=== PATIENT | female | born 1940 | race Caucasian/White ===

== ENCOUNTER → 2016-11-02 | Outpatient (CLI) | payer OTHER | END | disposition home or self-care (01) | LOC: C.PATHSPEC 14:26 | PROVIDERS: ATTEND Dermatology | DX: H61.002 Unspecified perichondritis of left external ear (principal) ==

== ENCOUNTER → 2016-12-22 | Outpatient (CLI) | payer OTHER | END | disposition home or self-care (01) | LOC: C.PATHSPEC 16:48 | PROVIDERS: ATTEND Dermatology | DX: L81.4 Other melanin hyperpigmentation (principal) ==

== ENCOUNTER → 2017-01-26 | Outpatient (CLI) | payer OTHER | END | disposition home or self-care (01) | LOC: C.PATHSPEC 16:35 | PROVIDERS: ATTEND Dermatology | DX: L82.1 Other seborrheic keratosis (principal) ==

== ENCOUNTER → 2017-01-26 | Outpatient (CLI) | payer OTHER | END | disposition home or self-care (01) | LOC: C.PAPS 15:31 | PROVIDERS: ATTEND Obstetrics & Gynecology | DX: N87.9 Dysplasia of cervix uteri, unspecified (principal); L82.1 Other seborrheic keratosis ==

== ENCOUNTER → 2017-02-09 | Outpatient (CLI) | payer OTHER ==
[2017-02-09 14:31] LABS: THYROID STIMULATING HORMONE 0.553 uIu/ml (0.300-4.500)
== END | disposition home or self-care (01) ==
LOC: C.LABMFLN 12:27
PROVIDERS: ATTEND Family Medicine
DX: E03.9 Hypothyroidism, unspecified (principal)

== ENCOUNTER → 2017-02-18 | Outpatient (CLI) | payer OTHER | END | disposition home or self-care (01) | LOC: C.PATH 13:55 | PROVIDERS: ATTEND Obstetrics & Gynecology | DX: R87.810 Cervical high risk human papillomavirus (HPV) DNA test positive (principal); N87.0 Mild cervical dysplasia ==

== ENCOUNTER → 2017-08-22 | Outpatient (CLI) | payer OTHER ==
[2017-08-22 12:43] LABS: BASO % 0.3 %; BASO ABS # 0.02 K/uL (0-0.2); COMPLETE YES; EOS % 2.3 %; HEMATOCRIT 42.2 % (37-47); IG% 0.2 %; LYMPH % 24.3 %; LYMPH ABS # 1.45 K/uL (1.2-3.4); MEAN CELL VOLUME 96.3 fL (80-100); MEAN CORPUSCULAR HEMOGLOBIN 33.1 pg (25-34); MEAN CORPUSCULAR HGB CONC 34.4 g/dl (32-36); MEAN PLATELET VOLUME 9.3 fL (7.4-10.4); MONO % 9.9 %; PLATELET COUNT 261 K/uL (130-400); RED BLOOD COUNT 4.38 M/uL (4.2-5.4); WHITE BLOOD COUNT 5.96 K/uL (4.8-10.8)
[2017-08-22 13:25] LABS: ALT/SGPT 35 U/L (12-78); AST/SGOT 29 U/L (15-37); BLOOD UREA NITROGEN 7 mg/dl (7-18); BUN/CREATININE RATIO 9.5 (10-20); CALCIUM 9.3 mg/dl (8.5-10.1); CARBON DIOXIDE 29 mmol/L (21-32); CHLORIDE 103 mmol/L (98-107); CREATININE 0.75 mg/dl (0.60-1.20); GLUCOSE 89 mg/dl (70-99); POTASSIUM 3.4 mmol/L (3.5-5.1); SODIUM 136 mmol/L (136-145)
[2017-08-22 13:37] LABS: ALB/GLOB RATIO 1.2 (0.9-2); ALKALINE PHOSPHATASE 88 U/L (45-117); CHOLESTEROL 193 mg/dl (0-200); CHOLESTEROL/HDL RATIO 2.6; HDL CHOLESTEROL 75 mg/dl; LDL CHOLESTEROL CALCULATED 81 mg/dl; TRIGLYCERIDES 184 mg/dl (0-150); VERY LOW DENSITY LIPOPROT CALC 37 mg/dl
== END | disposition home or self-care (01) ==
LOC: C.LABMFLN 09:47
PROVIDERS: ATTEND Family Medicine
DX: I10 Essential (primary) hypertension (principal); E03.9 Hypothyroidism, unspecified

== ENCOUNTER → 2017-09-08 | Outpatient (CLI) | payer OTHER | END | disposition home or self-care (01) | LOC: C.PATHSPEC 17:41 | PROVIDERS: ATTEND Dermatology | DX: L57.0 Actinic keratosis (principal) ==

== ENCOUNTER → 2017-10-10 | Outpatient (CLI) | payer OTHER | END | disposition home or self-care (01) | LOC: C.PAPS 13:49 | PROVIDERS: ATTEND Obstetrics & Gynecology | DX: Z12.4 Encounter for screening for malignant neoplasm of cervix (principal); N87.9 Dysplasia of cervix uteri, unspecified ==

== ENCOUNTER 2022-12-02 05:06 | Inpatient (IN) ==
--- NOTE | 2022-11-11 10:33 | PAT Medication Instructions ---
Medication Instructions Date of Service November 11, 2022 Home Medications Medication Instructions Recorded losartan 50 mg tablet 50 mg PO QAM #90 tabs 07/29/20 hydrochlorothiazide 25 mg tablet 25 mg PO QAM #90 tabs 02/17/21 fluocinolone 0.01 % scalp oil and 1 ea topical .COMPLEX #3 BTLS 02/27/21 shower cap betamethasone dipropionate 0.05 % 1 applic topical DAILY #180 mL 04/29/22 lotion clobetasol 0.05 % topical cream 1 applic topical BID PRN psoriasis 04/29/22 2 weeks #180 grams albuterol sulfate 90 mcg/actuation aerosol inhaler (Ventolin HFA) 1 puff inhalation UD PRN Shortness Of Breath ascorbic acid (vitamin C) 1,000 mg tablet (Vitamin C) 1 g PO UD PRN Cold Symptoms cholecalciferol (vitamin D3) 50 mcg (2,000 unit) capsule (Vitamin D3) 2,000 unit PO QAM loratadine 10 mg tablet 10 mg PO QAM fluticasone propionate 50 mcg/actuation nasal spray,suspension (Flonase Allergy Relief) 2 spray intranasal DAILY PRN Congestion losartan 50 mg tablet 50 mg PO QAM hydrochlorothiazide 25 mg tablet 25 mg PO QAM fluocinolone 0.01 % scalp oil and shower cap 1 ea topical betamethasone dipropionate 0.05 % lotion 1 applic topical DAILY clobetasol 0.05 % topical cream 1 applic topical BID PRN psoriasis 2 weeks Collagen Powder 1 dose PO QAM alendronate 70 mg tablet (Fosamax) 70 mg PO WK carboxymethylcellulose sodium 1 % eye drops (Artificial Tears (carboxymethylcellulose)) 1 drp ophthalmic (eye) QID docusate sodium 100 mg tablet (Stool Softener) 100 mg PO BID fluticasone 100 mcg-salmeterol 50 mcg/dose blistr powdr for inhalation (Advair Diskus) 1 inh inhalation BID hydroxychloroquine 200 mg tablet (Plaquenil) 100 mg PO HS levothyroxine 112 mcg tablet (Synthroid) 112 mcg PO QAM omega-3 fatty acids 1,000 mg PO DAILY turmeric 400 mg capsule 400 mg PO DAILY Continue as directed alendronate 70 mg tablet (Fosamax) 70 mg PO WK (just do not take morning of surgery) ASK your prescriber and surgeon hydroxychloroquine 200 mg tablet (Plaquenil) 100 mg PO HS STOP taking 2 weeks before surgery omega-3 fatty acids 1,000 mg PO DAILY turmeric 400 mg capsule 400 mg PO DAILY STOP taking 24 hours before surgery fluocinolone 0.01 % scalp oil and shower cap 1 ea topical betamethasone dipropionate 0.05 % lotion 1 applic topical DAILY clobetasol 0.05 % topical cream 1 applic topical BID PRN psoriasis 2 weeks DO NOT take the morning of surgery ascorbic acid (vitamin C) 1,000 mg tablet (Vitamin C) 1 g PO UD PRN Cold Symptoms cholecalciferol (vitamin D3) 50 mcg (2,000 unit) capsule (Vitamin D3) 2,000 unit PO QAM loratadine 10 mg tablet 10 mg PO QAM losartan 50 mg tablet 50 mg PO QAM hydrochlorothiazide 25 mg tablet 25 mg PO QAM Collagen Powder 1 dose PO QAM docusate sodium 100 mg tablet (Stool Softener) 100 mg PO BID Take morning of surgery With a small sip of water, OTHERWISE NOTHING TO EAT OR DRINK AFTER MIDNIGHT: levothyroxine 112 mcg tablet (Synthroid) 112 mcg PO QAM albuterol sulfate 90 mcg/actuation aerosol inhaler (Ventolin HFA) 1 puff inhalation UD PRN Shortness Of Breath (use if needed; please bring with you to hospital day of surgery if possible) fluticasone propionate 50 mcg/actuation nasal spray,suspension (Flonase Allergy Relief) 2 spray intranasal DAILY PRN Congestion (if needed) carboxymethylcellulose sodium 1 % eye drops (Artificial Tears (carboxymethylcellulose)) 1 drp ophthalmic (eye) QID fluticasone 100 mcg-salmeterol 50 mcg/dose blistr powdr for inhalation (Advair Diskus) 1 inh inhalation BID Take evening before surgery albuterol sulfate 90 mcg/actuation aerosol inhaler (Ventolin HFA) 1 puff inhalation UD PRN Shortness Of Breath (if needed) ascorbic acid (vitamin C) 1,000 mg tablet (Vitamin C) 1 g PO UD PRN Cold Symptoms (if needed) cholecalciferol (vitamin D3) 50 mcg (2,000 unit) capsule (Vitamin D3) 2,000 unit PO QAM loratadine 10 mg tablet 10 mg PO QAM fluticasone propionate 50 mcg/actuation nasal spray,suspension (Flonase Allergy Relief) 2 spray intranasal DAILY PRN Congestion (if needed) carboxymethylcellulose sodium 1 % eye drops (Artificial Tears (carboxymethylcellulose)) 1 drp ophthalmic (eye) QID docusate sodium 100 mg tablet (Stool Softener) 100 mg PO BID fluticasone 100 mcg-salmeterol 50 mcg/dose blistr powdr for inhalation (Advair Diskus) 1 inh inhalation BID Other Notes If you have any questions please call us at [phone] or [phone] or [phone] or [phone]
--- NOTE | 2022-11-15 10:36 | Anesthesiology Consultation ---
Date of Service November 15, 2022 Assessment & Plan (1) Encounter for pre-operative examination: - antibody screen positive: nothing additional needed per [facility] with blood bank, states they will have units available. - Pt states has a "light" screening yearly offered for free at [facility] and has been told of "mild carotid artery stenosis." No available imaging/records. She denies dizziness, lightheadedness or presyncope. Case discussed with Dr. Bautista who advised nothing further needed from his standpoint. Outpatient joint assessment: Patient is currently scheduled for inpatient pathway. If re-evaluated pending system levels during current pandemic/surgeon requests outpatient pathway, patient is not acceptable candidate for outpatient joint program from anesthesia standpoint. Chart Review Chart Review: Acceptable Risk for Surgery and Patient seen in Pre Admission Testing Teaching & Discussion Pre-Anesthesia Teaching/Discussion Notes: Instructed NPO after midnight before surgery, except medications with 15 cc of water. Medication instructions provided according to the PAT guidelines. History Surgery Operation Date: 12/02/22 12:10 Proposed Procedures p Left Total Shoulder Arthroplasty Reverse - Wilian Dey M.D. Height/Weight Height: 5 ft 3 in Weight: 64.3 kg Allergies Allergy/AdvReac Type Severity Reaction Status Date / Time Sulfa (Sulfonamide Allergy Intermediate Hives Verified 11/11/22 08:39 Antibiotics) celecoxib [From Celebrex] Allergy Mild Rash Verified 11/11/22 08:39 linaclotide [From Linzess] AdvReac Intermediate Abdominal Verified 11/11/22 08:43 Pain nabumetone Allergy Mild Rash Uncoded 11/11/22 08:39 Medications Home Medications Medication Instructions Recorded Confirmed Last Taken albuterol sulfate 90 mcg/actuation 1 puff inhalation UD PRN Shortness 05/31/18 11/11/22 06/16/18 06:45 aerosol inhaler (Ventolin HFA) Of Breath ascorbic acid (vitamin C) 1,000 mg 1 g PO UD PRN Cold Symptoms 05/31/18 11/11/22 Unknown tablet (Vitamin C) cholecalciferol (vitamin D3) 50 2,000 unit PO QAM 05/31/18 11/11/22 06/15/18 07:00 mcg (2,000 unit) capsule (Vitamin D3) loratadine 10 mg tablet 10 mg PO QAM 05/31/18 11/11/22 06/15/18 07:00 fluticasone propionate 50 2 spray intranasal DAILY PRN 06/16/18 11/11/22 06/15/18 07:00 mcg/actuation nasal Congestion spray,suspension (Flonase Allergy Relief) losartan 50 mg tablet 50 mg PO QAM #90 tabs 07/29/20 11/11/22 Unknown hydrochlorothiazide 25 mg tablet 25 mg PO QAM #90 tabs 02/17/21 11/11/22 Unknown fluocinolone 0.01 % scalp oil and 1 ea topical .COMPLEX #3 BTLS 02/27/21 11/11/22 Unknown shower cap betamethasone dipropionate 0.05 % 1 applic topical DAILY #180 mL 04/29/22 11/11/22 Unknown lotion clobetasol 0.05 % topical cream 1 applic topical BID PRN psoriasis 04/29/22 11/11/22 Unknown 2 weeks #180 grams Collagen Powder 1 dose PO QAM 11/11/22 11/11/22 Unknown alendronate 70 mg tablet (Fosamax) 70 mg PO WK 11/11/22 11/11/22 Unknown carboxymethylcellulose sodium 1 % 1 drp ophthalmic (eye) QID 11/11/22 11/11/22 Unknown eye drops (Artificial Tears (carboxymethylcellulose)) docusate sodium 100 mg tablet 100 mg PO BID 11/11/22 11/11/22 Unknown (Stool Softener) fluticasone 100 mcg-salmeterol 50 1 inh inhalation BID 11/11/22 11/11/22 Unknown mcg/dose blistr powdr for inhalation (Advair Diskus) hydroxychloroquine 200 mg tablet 100 mg PO HS 11/11/22 11/11/22 Unknown (Plaquenil) levothyroxine 112 mcg tablet 112 mcg PO QAM 11/11/22 11/11/22 Unknown (Synthroid) omega-3 fatty acids 1,000 mg PO DAILY 11/11/22 11/11/22 Unknown turmeric 400 mg capsule 400 mg PO DAILY 11/11/22 11/11/22 Unknown acetaminophen 160 mg tablet 325 mg PO Q4H PRN Pain 11/15/22 11/15/22 Unknown ascorbate calcium (vitamin C) 11/15/22 Unknown biotin 10,000 mcg capsule mcg PO QAM 11/15/22 Unknown ibuprofen 100 mg tablet 200 mg PO Q6H PRN Pain 11/15/22 11/15/22 Unknown Additional Notes: Pt states is also taking biotin, calcium, acetaminophen and ibuprofen prn. These were added to EMR and written on provided medication instructions with patient to stop biotin 2 weeks before surgery, check with surgeon on ibuprofen, NOT take calcium DOS and can continue acetaminophen prn. She verbalized full understanding and agreement, denied questions, concerns or additional medications/supplements. 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 Exercise / Class Metabolic Activity III < 4 Walking/Shop/Light housework (ambulates with cane, denies chest discomfort or shortness of breath with usual activities) Past Family History Family History Father Prostate cancer Heart disease Hypercholesterolemia Lung cancer Hypertension Stroke Sister Liver cancer Heart disease Mother Ovarian cancer Heart disease Hypercholesterolemia Hypertension Family/Other Breast cancer Other No family history of adverse response to anesthesia Denies family history of Myocardial infarction Colorectal cancer Past Surgical History Surgical History (Updated 11/15/22 @ 10:31 by Humaira Martinez PA-C) H/O dilation and curettage History of arthroscopy RT SHOULDER History of bunionectomy RT History of cataract surgery RT History of loop electrical excision procedure (LEEP) x2, november 2015, saw Dr Escamilla february 2017 Hx of colonoscopy Hx of hand surgery 5 JOINT REPLACEMENTS OF FINGERS Hx of thyroidectomy REMOVED BECAUSE "ENLARGED" Hx of tonsillectomy 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 Past Anesthesia History No Hx of Anesthesia Complications and No Family Hx of Anesthesia Complications History of PONV No Hx of PONV and No Hx of Motion Sickness Social History Smoking Status: Former smoker tobacco type: cigarettes Smoking cigarettes per day: social smoking "WHEN I WAS YOUNGER" Do You Dip or Chew Tobacco: No Hx Alcohol Use: Yes (Occ) Alcohol type: beer and wine alcohol intake frequency: a few times a month substance use type: does not use Review of Systems Patient denies chest pain, shortness of breath, dyspnea on exertion, snoring, witnessed apneas, reflux, fever, chills, cough, wheezing, or palpitations. Physical Exam Vital Signs Vitals BP 131/81 P 78 TEMP 98.6 SP02 96% on RA RESP 18 Physical Full cervical extension range of motion without pain TMD 3 finger breadths Mallampati Score 2 Dentition: intact, denies chipped or loose teeth, caps/crowns, implants or bridges Lungs: normal respiratory effort. Clear throughout to auscultation, no adventitious breath sounds Cardiac: regular rate and rhythm, no murmurs noted Carotid arteries: negative bruit bilat Lab Results Anesthesia Preop Results Results Anesthesia Widget: WBC 5.63 K/ul (4.8-10.8) 11/15/22 Hgb 13.1 g/dl (12.0-16.0) 11/15/22 Hct 38.9 % (37.0-47.0) 11/15/22 Plt 270 K/uL (130-400) 11/15/22 Na 138 mmol/L (136-145) 11/15/22 K 3.5 mmol/L (3.5-5.1) 11/15/22 Cl 103 mmol/L (98-107) 11/15/22 CO2 30 mmol/L (21-32) 11/15/22 BUN 25 mg/dl (6-23) H 11/15/22 Creat 0.57 mg/dl (0.6-1.2) L 11/15/22 Glucose Level 78 mg/dl (70-99(Fasting)) 11/15/22 PT 10.6 Seconds (9.0-12.0) 11/15/22 PTT 26.8 Seconds (21.0-31.0) 11/15/22 INR 1.0 (0.9-1.1) 11/15/22 HA1c 5.3 % (4.5-5.6) 11/15/22 Urine Color Yellow 11/15/22 Urine Appearance Clear (Clear) 11/15/22 Urine pH 6.5 (4.5-7.5) 11/15/22 Urine Specific [place] 1.011 (1.000-1.030) 11/15/22 Urine Protein Negative (Negative) 11/15/22 Urine Glucose (UA) Negative (Negative) 11/15/22 Urine Ketones Negative (Negative) 11/15/22 Urine Blood Negative (Negative) 11/15/22 Urine Nitrite Negative (Negative) 11/15/22 Urine Bilirubin Negative (Negative) 11/15/22 Urine Urobilinogen Negative (Negative) 11/15/22 Urine Leukocyte Esterase Negative (Negative) 11/15/22 Blood Type O Positive 11/15/22 Antibody Screen POSITIVE A 11/15/22 Testing Electrocardiogram Date: 11/15/22 NSR, rate 73 bpm Left axis deviation Chest X-Ray Date: 11/15/22 Right shoulder reverse arthroplasty noted. Calcified aortic knob is seen. The lungs are clear. No evidence of pleural effusion or pneumothorax. Degenerative changes are seen in the spine. IMPRESSION: No acute chest disease. Echocardiogram Date: 11/12/21 EF 57% Grade I diastolic dysfunction Mild tricuspid regurgitation Small (<5 mm) circumferential pericardial effusion Cardiac tamponade is absent Mild cLVH Other Testing CT head/brain, cervical spine 01/07/22 No intracranial hemorrhage, calvarial fracture, or other acute intracranial pathology Maxillofacial Minimally displaced bilateral nasal bone fractures Diffuse right facial/preseptal soft tissue swelling and subcutaneous hemorrhage without underlyin gorbital fracture Rightward nasal septal deviation Cervical spine No acute cervical spine fracture or traumatic subluxation Multilevel degenerative changes, as detailed above COVID-19 Risk Screen Screening Information COVID-19 Screen Date: 11/15/22 Exposure 21 Days Family/Household +COVID Last 21 Days: No Exposure 10 Days Any COVID Exposure Last 10 Days: No Symptoms Last 10 Days Experienced COVID Sx Last 10 Days: No + COVID 0-90 Days COVID + in Last 0-90 Days: No
--- NOTE | 2022-12-01 09:28 | History & Physical Report ---
Date of Service December 01, 2022 Assessment & Plan (1) Rotator cuff arthropathy of left shoulder: Plan: She has a massive, retracted, chronic full-thickness rotator cuff tear. There is advanced fatty atrophy of the supraspinatus and infraspinatus muscle bellies, and this is therefore an irrepairable rotator cuff tear. She has remodeling changes consistent with rotator cuff tear arthropathy. She has received steroid injections for many years with decreasing efficacy. The pain and weakness is significantly limiting to her. We discussed further conservative management with repeat injections versus definitive surgical intervention. She is much interested in the latter at this point. She was advised that reverse total shoulder arthroplasty would be the only viable surgical treatment option at this point, she is in agreement. Risks, benefits, and alternatives of surgery were explained in detail. The surgical procedure, as well as postoperative recovery and rehabilitation, was also explained in detail. Risks include bleeding; infection; damage to surrounding structures such as nerves, blood vessels, and tendons that run in the area; persistent pain or stiffness; hardware failure; dislocation; brachial plexus palsy; blood clots; or need for further surgery. The patient understands all of this and wishes to proceed with surgery. Risks will be reviewed on the day of surgery and informed consent obtained. History of Present Illness Chief Complaint: Left shoulder pain Primary Care Provider: Samantha De Oliveira DO Ms. Mayers is an 82-year-old female with chronic left shoulder pain. She has had numerous injections over the years with decreasing efficacy. The pain is significantly limiting to her. Allergies Allergy/AdvReac Type Severity Reaction Status Date / Time Sulfa (Sulfonamide Allergy Intermediate Hives Verified 11/11/22 08:39 Antibiotics) celecoxib [From Celebrex] Allergy Mild Rash Verified 11/11/22 08:39 linaclotide [From Linzess] AdvReac Intermediate Abdominal Verified 11/11/22 08:43 Pain nabumetone Allergy Mild Rash Uncoded 11/11/22 08:39 Home Medications Medication Instructions Recorded Confirmed Type albuterol sulfate 90 mcg/actuation 1 puff inhalation UD PRN Shortness 05/31/18 11/11/22 History aerosol inhaler (Ventolin HFA) Of Breath ascorbic acid (vitamin C) 1,000 mg 1 g PO UD PRN Cold Symptoms 05/31/18 11/11/22 History tablet (Vitamin C) cholecalciferol (vitamin D3) 50 2,000 unit PO QAM 05/31/18 11/11/22 History mcg (2,000 unit) capsule (Vitamin D3) loratadine 10 mg tablet 10 mg PO QAM 05/31/18 11/11/22 History fluticasone propionate 50 2 spray intranasal DAILY PRN 06/16/18 11/11/22 History mcg/actuation nasal Congestion spray,suspension (Flonase Allergy Relief) losartan 50 mg tablet 50 mg PO QAM #90 tabs 07/29/20 11/11/22 Rx hydrochlorothiazide 25 mg tablet 25 mg PO QAM #90 tabs 02/17/21 11/11/22 Rx fluocinolone 0.01 % scalp oil and 1 ea topical .COMPLEX #3 BTLS 02/27/21 11/11/22 Rx shower cap betamethasone dipropionate 0.05 % 1 applic topical DAILY #180 mL 04/29/22 11/11/22 Rx lotion clobetasol 0.05 % topical cream 1 applic topical BID PRN psoriasis 04/29/22 11/11/22 Rx 2 weeks #180 grams Collagen Powder 1 dose PO QAM 11/11/22 11/11/22 History alendronate 70 mg tablet (Fosamax) 70 mg PO WK 11/11/22 11/11/22 History carboxymethylcellulose sodium 1 % 1 drp ophthalmic (eye) QID 11/11/22 11/11/22 History eye drops (Artificial Tears (carboxymethylcellulose)) docusate sodium 100 mg tablet 100 mg PO BID 11/11/22 11/11/22 History (Stool Softener) fluticasone 100 mcg-salmeterol 50 1 inh inhalation BID 11/11/22 11/11/22 History mcg/dose blistr powdr for inhalation (Advair Diskus) hydroxychloroquine 200 mg tablet 100 mg PO HS 11/11/22 11/11/22 History (Plaquenil) levothyroxine 112 mcg tablet 112 mcg PO QAM 11/11/22 11/11/22 History (Synthroid) omega-3 fatty acids 1,000 mg PO DAILY 11/11/22 11/11/22 History turmeric 400 mg capsule 400 mg PO DAILY 11/11/22 11/11/22 History acetaminophen 160 mg tablet 325 mg PO Q4H PRN Pain 11/15/22 11/15/22 History ascorbate calcium (vitamin C) 11/15/22 History biotin 10,000 mcg capsule mcg PO QAM 11/15/22 History ibuprofen 100 mg tablet 200 mg PO Q6H PRN Pain 11/15/22 11/15/22 History Past Med/Surg History Medical History (Updated 12/01/22 @ 09:27 by Wilian Dey M.D.) Anxiety Asthma stable per pt; last rescue inhaler use 3-4 weeks ago Dry eye syndrome History of HPV infection History of skin cancer BCC, left arm, left zoroastrian and hands bilat s/p treatment, follows with PCP Hx of fall DECEMBER 2021>FX NOSE (NO SURGERY) Hyperlipidemia Hypertension controlled, stable per pt Hypothyroidism IBD (inflammatory bowel disease) Mild dysplasia of cervix bx march 2018 PMR (polymyalgia rheumatica) Postmenopausal osteoporosis Psoriasis Psoriatic arthropathy Tricuspid regurgitation Surgical History (Updated 11/15/22 @ 10:31 by Humaira Martinez PA-C) H/O dilation and curettage History of arthroscopy RT SHOULDER History of bunionectomy RT History of cataract surgery RT History of loop electrical excision procedure (LEEP) x2, november 2015, saw Dr Escamilla february 2017 Hx of colonoscopy Hx of hand surgery 5 JOINT REPLACEMENTS OF FINGERS Hx of thyroidectomy REMOVED BECAUSE "ENLARGED" Hx of tonsillectomy 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 Family History Father Prostate cancer Heart disease Hypercholesterolemia Lung cancer Hypertension Stroke Sister Liver cancer Heart disease Mother Ovarian cancer Heart disease Hypercholesterolemia Hypertension Family/Other Breast cancer Other No family history of adverse response to anesthesia Denies family history of Myocardial infarction Colorectal cancer Social History (Updated 09/02/20 @ 14:13 by Darcy Green) Smoking Status: Former smoker Age Started Using Tobacco: 31; Age Quit Using Tobacco: 34; packs per day: 0.25; Cigarettes Per Day: social smoking "WHEN I WAS YOUNGER"; Second Hand Exposure: Yes (Father smoked); Hx Alcohol Use: Yes (Occ) Alcohol type: beer and wine Alcohol Intake Frequency: Monthly or Less Preferred Language: Brazilian Communication Ability: Effective Visual Impairment: Partially Limited Hearing Ability: Normal 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 Beliefs That Will Affect Care: None marital status: marital status details: Current Living Situation: Spouse current occupational status: retired How many Children do You have: 4 Feels Safe at Home: Yes Childhood Exposure to Second-Hand Smoke: Yes (Father smoked) Diet Comment: Regular diet caffeine: Yes (coffee) during the past year weight has: remained stable Dental Care, Regularly: Yes Physical Activity Frequency: Daily Physical Activity Frequency Comment: Walking Seatbelt Use: always Sunscreen Use: Yes Do you think of yourself as: straight/heterosexual Assistive Devices: Cane and Glasses Physical Exam Physical Exam: Examination of the left shoulder shows moderate limitation in shoulder range of motion due to pain, with palpable crepitus during motion. Rotator cuff strength is globally weak. Results & Data ([facility]) Diagnostic Findings Previous x-rays of the left shoulder from May 2022 were reviewed. No significant glenohumeral joint arthritis, and no obvious proximal migration of the humeral head, but there are remodeling changes of the greater tuberosity that are concerning for rotator cuff tear arthropathy. MRI of the left shoulder from October 2022 was reviewed. It shows a massive, full-thickness, retracted rotator cuff tear involving the entirety of the supraspinatus and infraspinatus tendons, with advanced fatty atrophy of both muscle bellies. There is proximal migration of the humeral head and remodeling changes of the greater tuberosity and acromion consistent with rotator cuff tear arthropathy. Type III acromion.
[2022-12-02] MEDS ORDERED: dexAMETHasone 4 MG TAB PO SCH (06:00)
[2022-12-02] MEDS ORDERED: ACETAMINOPHEN 500 MG TAB PO SCH (06:00)
[2022-12-02] MEDS ORDERED: GABAPENTIN 300 MG CAP PO SCH (06:00)
[2022-12-02] MEDS ORDERED: LR 15ML/HR IV SCH (06:00)
[2022-12-02] MEDS ORDERED: FAMOTIDINE 20 MG TAB PO SCH (06:00)
[2022-12-02] MEDS ORDERED: ceFAZolin 2000MG 2,000 MG/15 ML SYR IV SCH (06:00)
[2022-12-02] MEDS ORDERED: TRANEXAMIC ACID 1,000 MG **IV Intra-op IV SCH (06:00)
[2022-12-02] MEDS ORDERED: BUPIVACAINE 0.5 % 5 MG/1 ML PF 10ML VIAL ONE (06:21)
--- NOTE | 2022-12-02 07:09 | History & Physical Bridge Note ---
Date of Service December 02, 2022 History & Physical Bridge Note I have examined the patient, reviewed the History & Physical and in the interval since the performance of the History & Physical I have noted the following changes of clinical significance: Patient's rapid test for COVID this morning was positive. She does report that she has had a runny nose for a few days/weeks, but otherwise asymptomatic. Confirmatory PCR test is being run. Will await results before proceeding with nerve block and shoulder replacement surgery.
[2022-12-02] MEDS ORDERED: LIDOCAINE 2% MPF LOCAL 5 ML VIAL INFIL ONE (07:54)
[2022-12-02] MEDS ORDERED: fentaNYL citrate PF 100 MCG/2 ML VIAL ONE (07:54)
[2022-12-02] MEDS ORDERED: MIDAZOLAM HCL 1 MG/ML 2ML VIAL ONE (07:54)
[2022-12-02] MEDS ORDERED: PROPOFOL IV EMULSION 10 MG/ML 20 ML VIAL IV ONE (07:54)
[2022-12-02] MEDS ORDERED: ePHEDrine sulfate 50 MG/ML AMP IV PRN (08:18)
[2022-12-02] MEDS ORDERED: ONDANSETRON INJ 2 MG/ML 2 ML VIAL IV PRN ×2 (08:18→11:35)
[2022-12-02] MEDS ORDERED: ATROPINE SULFATE 0.1 MG/ML 10ML SYR IV PRN (08:18)
[2022-12-02] MEDS ORDERED: fentaNYL citrate PF 100 MCG/2 ML VIAL IV PRN (08:18)
[2022-12-02] MEDS ORDERED: DEXAMETHASONE SOD INJ 4 MG/ML VIAL ONE (08:39)
[2022-12-02] MEDS ORDERED: ONDANSETRON INJ 2 MG/ML 2 ML VIAL ONE (08:39)
[2022-12-02] MEDS ORDERED: ePHEDrine sulfate 50 MG/ML SYR ONE (08:50)
--- NOTE | 2022-12-02 09:43 | Operative Report ---
Post Operative Report Pre & Post Diagnosis Operation Date: 12/02/22 07:00 Pre-Op Diagnosis: Left Shoulder Rotator Cuff Tear Arthropathy Post-Op Diagnosis: Left Shoulder Rotator Cuff Tear Arthropathy I identified the patient and participated in the time-out.: Yes Procedure Operation Date: 12/02/22 07:00 Actual Procedures Left reverse total shoulder arthroplasty (10365) Open biceps tenodesis (54782) - Wilian Dey M.D. Surgeon Wilian Dey MD Tape Stringer Taiwo Dumont PA-C Estimated Blood Loss 75 Findings Consistent with Post-Op Diagnosis Specimens None Drains None Anesthesia Type General Regional Complications none Disposition Disposition: Recovery Room Indications Ms. Mayers is an 82-year-old female with chronic left shoulder pain and weakness. History, clinical exam, and imaging were consistent with the above diagnosis. Risks, benefits, and alternatives of surgery were explained in detail. The patient understood all this and wished to proceed. Description of Procedure Components Implanted: Tornier Reverse Total Shoulder implants Perform glenoid baseplate: 25mm, 15 degree full wedge with 6.5mm central screw and 5.0mm peripheral screws Glenosphere: 36mm standard Ascend Flex humeral stem: 5B Standard length (82mm) Humeral tray: 1.5 mm offset, +0mm thickness Polyethylene insert: 36mm, +6mm thickness Patient was identified in the preoperative holding area. Operative extremity was marked. Regional blockade was given by the Anesthesia Staff. Patient was then brought back to the operating room, and general anesthesia was induced without complication. Appropriate weight-based dose of Ancef was infused intravenously for antibiotic prophylaxis. The patient was then placed in the beachchair position. Left arm was then prepped and draped in a standard sterile fashion using Chlorhexidine prep. A standard deltopectoral incision was made through the skin and subcutaneous tissue. The cephalic vein was identified and retracted medially. Small branches to the deltoid were coagulated as necessary. The clavipectoral fascia was then incised and the subdeltoid space was opened. The rotator cuff was found to be deficient, and I therefore decided to perform a reverse total shoulder arthroplasty as planned preoperatively. The biceps tendon was identified within the bicipital groove and tenodesed at the superior border of the pectoralis tendon with #2 FiberWire suture. The biceps tendon was then divided proximal to the tenodesis site and the rotator interval was opened. The proximal portion of the biceps tendon was excised. The remaining subscapularis tendon was elevated subperiosteally off of the lesser tuberosity. The glenohumeral joint was then dislocated, and large osteophytes were debrided with a ronguer. The intramedullary canal of the humerus was then opened with a canal finder. The humeral head cut was then made in the appropriate inclination and version using the cutting guide. The humeral canal was then sequentially broached to the appropriate size. A protective cap was then placed on top of the humeral trial. I then turned my attention to the glenoid. The proximal stump of the biceps tendon was excised, along with the labrum circumferentially around the glenoid. The Blueprint drill guide was then positioned on the glenoid, and the guidepin was then inserted. The 15 degree angled reamer was then inserted over the guidepin and an reamed to an appropriate depth. The central screw hole was drilled, and appropriate length 6.5mm central screw was selected. The baseplate was then implanted into place according to our preoperative Blueprint plan by tightening down the central screw. A peripheral 5mm nonlocking screw was placed superiorly first for additional compression of the baseplate, and then additional locking 5 mm peripheral screws were placed to complete fixation of the baseplate. Glenosphere was then impacted and secured. A trial humeral tray and insert were placed on the trial humeral stem, and a trial reduction was carried out. Once I achieved acceptable joint stability and range of motion with the trial implants, the final humeral implants were assembled on the back table and then impacted into position. I then took the shoulder through full range of motion to ensure good stability and acceptable motion. Wound was then copiously irrigated with sterile saline. Deep fascia was closed with 0 V-lock suture. Subcutaneous tissue was closed with 2-0 V-lock, and skin was closed with 3-0 V-lock. Skin was then sealed with Dermabond. Sterile dressings were then applied with a waterproof silver-impregnated dressing, and the arm was placed into a sling. The patient was awakened from anesthesia and taken to the Post Anesthesia Care Unit in stable condition. There were no immediate complications from the procedure. I was present and scrubbed for the entire procedure, with the exception of final skin closure and dressing application. Due to the complex nature of the procedure, the entire surgery was performed with the operational assistance of Taiwo Dumont PA-C. The oncology physician assistant, under direct supervision, was involved in the performance of all aspects of the surgical procedure including hemostasis, tissue incision and retraction, instrument management, patient positioning, and wound closure. I attest to the content of the Intraoperative Record and any orders documented therein. Any exceptions are noted below.
--- NOTE | 2022-12-02 11:03 | XRay Report ---
XR shoulder LT min 2V routine HISTORY: 82 years-old Female Post shoulder surgery left shoulder arthroplasty COMPARISON: Chest radiograph 11/15/2022 TECHNIQUE: 2 views of the left shoulder FINDINGS: Reverse left shoulder total joint arthroplasty demonstrates satisfactory alignment without acute frac ture or unexpected opaque foreign body. Expected postoperative soft tissue swelling with deep tissue air. Overlying bandage material. IMPRESSION: Reverse left shoulder total joint arthroplasty with expected postoperative changes. ACT 112: Negative or not required by law. The above report was generated using voice recognition software. It may contain grammatical, syntax o r spelling errors. Electronically signed by: Bryant Powell M.D. 12/02/2022 11:02 AM
[2022-12-02] MEDS ORDERED: SODIUM CHLORIDE 0.9% 1000ML 1,000 ML IV SCH (11:35)
[2022-12-02] MEDS ORDERED: bisacodyL 10 MG SUPP PR PRN (11:35)
[2022-12-02] MEDS ORDERED: NALOXONE HCL 0.4 MG/1 ML VIAL/CARP IV PRN (11:35)
[2022-12-02] MEDS ORDERED: oxyCODONE HCL IR 5 MG TAB (IMMEDIATE RELEASE) PO PRN (11:35)
[2022-12-02] MEDS ORDERED: MAGNESIUM HYDROXIDE SUSP 30 ML UDC PO PRN (11:35)
[2022-12-02] MEDS ORDERED: METOCLOPRAMIDE HCL INJ 5 MG/ML 2 ML VIAL IV PRN (11:35)
[2022-12-02] MEDS ORDERED: ALBUTEROL HFA 8 GM INHALER INH PRN (11:35)
[2022-12-02] MEDS: ACETAMINOPHEN 500 MG TAB PO SCH ×3 (12:29→22:58)
[2022-12-02] MEDS: ARTIFICIAL TEARS OP SCH ×3 (12:30→20:03)
--- NOTE | 2022-12-02 13:51 | Anesthesiology Progress Note ---
Date of Service December 02, 2022 Anesthesia Post Procedure Vital Signs Vital Signs: Temp Pulse Pulse Resp BP Pulse Ox O2 Del Method 12/02/22 13:10 36.3 C L 86 18 113/66 92 Room Air 12/02/22 12:10 36.3 C L 76 16 116/72 93 Room Air 12/02/22 11:40 36.4 C L 69 16 116/70 93 Room Air 12/02/22 11:41 Room Air 12/02/22 11:10 36.3 C L 72 18 122/78 92 Room Air 12/02/22 10:20 81 20 135/75 93 Room Air 12/02/22 10:10 74 20 149/77 H 99 Oxymask 12/02/22 10:50 77 22 131/72 95 Room Air 12/02/22 10:40 36.4 C L 78 20 132/73 94 Room Air 12/02/22 10:30 82 18 112/86 94 Room Air 12/02/22 10:00 87 16 143/97 H 99 Oxymask 12/02/22 09:59 36.7 C 88 14 163/86 H 97 Oxymask 12/02/22 05:29 36.6 C 79 20 164/92 H 98 Room Air O2 Flow Rate 12/02/22 13:10 12/02/22 12:10 12/02/22 11:40 12/02/22 11:41 12/02/22 11:10 12/02/22 10:20 12/02/22 10:10 3 12/02/22 10:50 12/02/22 10:40 12/02/22 10:30 12/02/22 10:00 6 12/02/22 09:59 6 12/02/22 05:29 Transfer of Care Handoff Completed per policy Notes Mental Status: alert / awake / arousable Patient Amnestic to Procedure: Yes Nausea / Vomiting: adequately controlled Pain: adequately controlled Airway Patency, RR, SpO2: stable & adequate BP & HR: stable & adequate Hydration State: stable & adequate Anesthetic Complications: no major complications apparent
[2022-12-02] MEDS: IBUPROFEN 600 MG TAB PO SCH ×2 (15:49→20:07)
[2022-12-02] MEDS: ceFAZolin 2000MG 2,000 MG/15 ML SYR IV SCH ×2 (15:56→22:57)
[2022-12-02] MEDS: DOCUSATE SODIUM 100 MG CAP PO SCH (20:04)
[2022-12-02] MEDS ORDERED: SENNA 8.6 MG TAB PO SCH (21:00)
[2022-12-02] MEDS ORDERED: HYDROXYCHLOROQUINE SULFATE 200 MG TAB PO SCH (21:00)
[2022-12-02] MEDS ORDERED: NON-FORMULARY MEDICATION (Docusate Sodium [Stool Softener] 100 mg Tablet) PO SCH (21:00)
[2022-12-03] MEDS: IBUPROFEN 600 MG TAB PO SCH ×2 (04:00→09:51)
[2022-12-03] MEDS: ACETAMINOPHEN 500 MG TAB PO SCH (05:33)
[2022-12-03] MEDS ORDERED: LEVOTHYROXINE SODIUM 112 MCG TABLET PO SCH (06:30)
[2022-12-03] MEDS: ARTIFICIAL TEARS OP SCH (08:01)
[2022-12-03] MEDS: DOCUSATE SODIUM 100 MG CAP PO SCH (08:02)
[2022-12-03] MEDS ORDERED: FLUTICASONE/VILANTEROL 100/25MCG 14 PUFFS/INHALER INH SCH (09:00)
[2022-12-03] MEDS ORDERED: CHOLECALCIFEROL 1,000 UNITS 25 MCG TAB PO SCH (09:00)
[2022-12-03] MEDS ORDERED: MULTIVITAMIN TAB PO SCH (09:00)
[2022-12-03] MEDS ORDERED: LOSARTAN POTASSIUM 50 MG TAB PO SCH (09:00)
[2022-12-03] MEDS ORDERED: ASPIRIN 325 MG ECTAB PO SCH (09:00)
[2022-12-03] MEDS ORDERED: LORATADINE 10 MG TAB PO SCH (09:00)
[2022-12-03] MEDS ORDERED: hydroCHLOROthiazide 25 MG TAB PO SCH (09:00)
--- NOTE | 2022-12-03 09:44 | Orthopedic Progress Note ---
Date of Service December 03, 2022 Assessment & Plan (1) History of reverse total replacement of left shoulder joint: Plan: Pt is POD #1 from left reverse TSA -PT/OT -Pain regime as written -DVT ppx with ASA 325 daily, TEDS, and SCDs -Pt is stable from an orthopedic standpoint for discharge home today Admission and Anticipated Discharge Date Admission Date: December 02, 2022 Subjective Pt is POD #1 s/p Left reverse TSA -Pt doing well this morning, sitting up in chair eating breakfast, states she is ready to go home this morning -Pain is well controlled with current regime -Denies CP, SOB, abdominal pain, fever, chills, or N/V Review of Systems Review of Systems: All systems reviewed & are unremarkable except as noted in Subjective Physical Exam Physical Exam: LUE with dressing and sling in place. Dressing is c/d/i. Able to wiggle fingers, good ROM of wrist, capillary refill less than 2 seconds, distal perfusion and sensation grossly intact. Results & Data Vital Signs (Past 12 Hours) Vital Signs Temp Pulse Resp BP Pulse Ox O2 Del Method 12/03/22 07:41 37.0 C 75 18 131/75 94 Room Air 12/03/22 04:00 36.5 C 73 18 118/67 93 Room Air 12/02/22 23:00 36.8 C 70 18 125/71 94 Room Air 12/02/22 22:46 36.5 C 76 18 112/66 94 Room Air 12/02/22 21:54 Room Air Laboratory Results Laboratory Results WBC 6.23 K/ul (4.8-10.8) 12/03/22 09:03 RBC 4.07 M/uL (4.20-5.40) L 12/03/22 09:03 Hgb 12.6 g/dl (12.0-16.0) 12/03/22 09:03 Hct 37.2 % (37.0-47.0) 12/03/22 09:03 MCV 91.4 fL (80.0-100.0) 12/03/22 09:03 MCH 31.0 pg (25.0-34.0) 12/03/22 09:03 MCHC 33.9 g/dL (32.0-36.0) 12/03/22 09:03 RDW Std Deviation 44.5 fL (36.4-46.3) 12/03/22 09:03 RDW Coeff of Yvan 13.3 % (11.5-14.5) 12/03/22 09:03 Plt Count 220 K/uL (130-400) 12/03/22 09:03 MPV 9.8 fL (9.4-12.4) 12/03/22 09:03 Immature Gran % (Auto) 0.5 % 12/03/22 09:03 Neut % (Auto) 67.5 % 12/03/22 09:03 Lymph % (Auto) 26.2 % 12/03/22 09:03 Sharp % (Auto) 5.3 % 12/03/22 09:03 Eos % (Auto) 0.2 % 12/03/22 09:03 Baso % (Auto) 0.3 % 12/03/22 09:03 Neut # (Auto) 4.21 K/uL (1.40-6.50) 12/03/22 09:03 Lymph # (Auto) 1.63 K/uL (1.2-3.4) 12/03/22 09:03 Sharp # (Auto) 0.33 K/uL (0.11-0.59) 12/03/22 09:03 Eos # (Auto) 0.01 K/uL (0-0.50) 12/03/22 09:03 Baso # (Auto) 0.02 K/uL (0-0.2) 12/03/22 09:03 Immature Gran # (Auto) 0.03 K/uL (0.01-0.20) 12/03/22 09:03 SARS-CoV-2 (PCR) NEGATIVE (Negative) 12/02/22 06:43 SARS-CoV-2, RNA, NAAT POSITIVE (NEGATIVE) A* 12/02/22 Unknown Blood Type O Positive 12/02/22 05:31 Antibody Screen POSITIVE A 12/02/22 05:31 Antibody Identification Anti-E 12/02/22 05:31 Antibody ID Comment 12/02/22 05:31 Crossmatch See Detail 12/02/22 05:31 Impressions Shoulder X-Ray 12/02/22 10:03 XR shoulder LT min 2V routine HISTORY: 82 years-old Female Post shoulder surgery left shoulder arthroplasty COMPARISON: Chest radiograph 11/15/2022 TECHNIQUE: 2 views of the left shoulder FINDINGS: Reverse left shoulder total joint arthroplasty demonstrates satisfactory alignment without acute fracture or unexpected opaque foreign body. Expected postoperative soft tissue swelling with deep tissue air. Overlying bandage material. IMPRESSION: Reverse left shoulder total joint arthroplasty with expected postoperative changes. ACT 112: Negative or not required by law. The above report was generated using voice recognition software. It may contain grammatical, syntax or spelling errors. Electronically signed by: Bryant Powell M.D. 12/02/2022 11:02 AM
[2022-12-03 10:16] LABS: Basophils # (auto) 0.02 K/uL (0-0.2); Basophils % (auto) 0.3 %; Eosinophils # (auto) 0.01 K/uL (0-0.50); Eosinophils % (auto) 0.2 %; Hematocrit (blood only) 37.2 % (37.0-47.0); Hemoglobin 12.6 g/dl (12.0-16.0); Immature Granulocytes # (auto) 0.03 K/uL (0.01-0.20); Immature Granulocytes % (auto) 0.5 %; Lymphocytes # (auto) 1.63 K/uL (1.2-3.4); Lymphocytes % (auto) 26.2 %; Mean Corpuscular Hgb Conc 33.9 g/dL (32.0-36.0); Mean Corpuscular Volume 91.4 fL (80.0-100.0); Mean Platelet Volume 9.8 fL (9.4-12.4); Monocytes # (auto) 0.33 K/uL (0.11-0.59); Monocytes % (auto) 5.3 %; Neutrophils # (auto) 4.21 K/uL (1.40-6.50); Neutrophils % (auto) 67.5 %; Platelet Count 220 K/uL (130-400); RDW Coefficient of Variation 13.3 % (11.5-14.5); RDW Standard Deviation 44.5 fL (36.4-46.3); Red Blood Count 4.07 M/uL (4.20-5.40); White Blood Count 6.23 K/ul (4.8-10.8)
[2022-12-03 10:40] LABS: Anion Gap 7 (3-11); BUN Creatinine Ratio 24.2 (10-20); Blood Urea Nitrogen 16 mg/dl (6-23); Calcium 9.4 mg/dl (8.5-10.1); Carbon Dioxide 26 mmol/L (21-32); Chloride 106 mmol/L (98-107); Creatinine Clr Calc Pharmacy 60.4 ml/min; Est GFR (Non-African American) 82.8 ml/min; Glucose 108 mg/dl (70-99(Fasting)); Sodium 139 mmol/L (136-145)
--- NOTE | 2022-12-06 13:24 | Discharge Summary ---
Date of Service December 06, 2022 Admission HPI Per Admitting Provider Ms. Mayers is an 82-year-old female with chronic left shoulder pain. She has had numerous injections over the years with decreasing efficacy. The pain is significantly limiting to her. Principal Diagnosis Left shoulder rotator cuff tear arthropathy Discharge Data Allergies Allergy/AdvReac Type Severity Reaction Status Date / Time Sulfa (Sulfonamide Allergy Intermediate Hives Verified 12/02/22 05:37 Antibiotics) celecoxib [From Celebrex] Allergy Mild Rash Verified 12/02/22 05:37 linaclotide [From Linzess] AdvReac Intermediate Abdominal Verified 12/02/22 05:37 Pain nabumetone Allergy Mild Rash Uncoded 12/02/22 05:37 Procedures Performed Operation Date: 12/02/22 07:00 Actual Procedures p Left Reverse Total Shoulder Arthroplasty - Wilian Dey M.D. Ordered Studies 12/02/22 05:00 US - OR guided needle placemen Routine Hospital Course (1) Rotator cuff arthropathy of left shoulder: Patient underwent a left reverse total shoulder arthroplasty on the date of admission. Patient tolerated the procedure well and was transferred up to the general orthopedic surgery floor in stable condition. Perioperative antibiotic coverage was initiated, and continued for 24 hours postoperatively. DVT prophylaxis was initiated consisting of SCDs and aspirin 325 mg daily. Perioperative pain control regimen was transitioned to strictly oral pain medications by postoperative day 1. On postoperative day 1 the patient was doing very well. Pain was well controlled, and patient was mobilizing well with therapy. Patient was determined be safe and ready for discharge to home. Total Time Total Time Spent Total Time Spent (In Minutes): 15 Discharge Plan Discharge Items Patient Disposition: Home - Self-Care Reason For Visit: Left Shoulder Rotator Cuff Tear Arthropathy Discharge Diagnosis: Left shoulder rotator cuff tear arthropathy Activity: Per Instructions section Non-emergency contact: Surgeon Call non-emergency contact if: your pain is not controlled, your temperature is above 101.5, your wound has increased redness and your wound has increased drainage Follow-up/Referrals: Wilian Dey M.D. [Physician] - 12/13/22 1:30 pm Samantha De Oliveira DO [Primary Care Provider] - Diet: Regular Addtl Attending Provider Instructions: Things to Watch Out For -Go to the Emergency Room if you have sudden onset of nausea, vomiting, chest pain, shortness of breath, or uncontrollable pain. -Call the clinic or go to the Emergency Room if you have a sudden increase in the amount of wound drainage or the drainage becomes thick, yellow or green, or foul-smelling. -For routine questions, call the clinic at [phone] during regular business hours (8am-5pm). For urgent issues after regular business hours, you may call the clinic to be connected to the on-call physician. Dressings -A special waterproof, silver-impregnated dressing was placed on your shoulder. Keep this dressing in place for 1 week after surgery. You may shower with the waterproof dressing in place, but do not soak the dressing in the bathtub or pool. -One week after surgery, you may remove the waterproof dressing. You may continue to shower, and let water run BRIEFLY over the incision, but do not soak the incision in the bathtub or pool for 2 weeks. You may also gently clean the incision with mild soap and water; pat the incision dry after cleaning-do not rub the incision. Apply a new dressing daily thereafter. Shoulder Exercises -Keep your operative shoulder in the sling for comfort, except as detailed below. -You should come out of the sling 4-5 times a day for passive pendulum exercises: lean over and swing your arm in a circular pattern. -You should also do active-assisted forward flexion exercises: use your opposite hand to lift your operative arm forward to 90 degrees. -Do not flex your elbow (curl motion) or supinate your forearm (rotating palm up) against resistance. -Do not use your arm to push yourself up out of bed or up from a seated position. Ice Pack -You may use an ice pack for pain relief. You should use it 20-30 minutes at a time. Place a towel between the ice pack and your skin to prevent frostbite. -You should use the ice pack fairly regularly for the first 1-2 weeks after surgery to help reduce pain and inflammation. -About 2 weeks after your surgery, you should start using heat to loosen up your shoulder prior to doing your stretching exercises, then use the cooling sleeve after your exercises are complete to reduce swelling and pain. Pain Medicines -Your prescriptions for pain medications have already been sent to the pharmacy on file at [facility]. -You have been prescribed an anti-inflammatory (Motrin/ibuprofen) and a non- narcotic pain medicine (Tylenol/acetaminophen). These are your primary pain medications. Take them each every 6 hours as instructed. It is recommended that you stagger these medicines every 3 hours (i.e. take ibuprofen at 8:00 am, then acetaminophen at 11:00 am, then ibuprofen at 2:00 pm, etc) -DO NOT take any additional anti-inflammatories (Advil, Aleve/naproxen, Mobic/meloxicam, Celebrex) or any additional Tylenol/acetaminophen products with these prescribed medications. -You have also been prescribed an additional narcotic pain medication (oxycodone). Take this medicine ONLY for breakthrough pain not controlled by the ibuprofen and acetaminophen. -Do not drive or operate heavy machinery while taking the narcotic medication. -Common side effects of narcotic pain medicines include itching, nausea, constipation, and feeling "loopy". However, if you develop a rash or hives, stop taking the medicine and call the clinic. If you develop swelling in your throat or difficulty breathing, go to the Emergency Room or call 911 IMMEDIATELY. -You may take over the counter stool softeners if needed for constipation. Aspirin -Take a full strength (325mg) aspirin every day for 4 weeks (28 days) to prevent blood clots. -If you were taking a baby aspirin (81mg) prior to surgery, you may resume grazyna ing this 81mg dose after you complete the 28-day course of the 325mg strength dose; do not take the 325mg dose in addition to your 81mg dose. -Be aware that you will bruise easier while taking Aspirin; this is normal. However, if you develop a significantly large area of swelling after an injury, or have a cut that will not stop bleeding, call the clinic or go to the Emergency Room immediately. Pending Studies at Discharge: No Stand-Alone Forms: My [facility], Pain - Opioid Pain Management Medications and DC Order Prescriptions: New aspirin [Ecotrin] 325 mg Tablet,Delayed Release (Dr/Ec) 325 mg PO QAM 30 Days Qty: 30 0RF acetaminophen [Tylenol Extra Strength] 500 mg Tablet 500 mg PO Q6 14 Days Qty: 56 0RF ibuprofen 600 mg Tablet 600 mg PO Q6H 14 Days Qty: 56 0RF oxycodone 5 mg Tablet 5 - 10 mg PO Q4H PRN (Reason: pain) 4 Days Qty: 20 0RF Continued losartan 50 mg tablet 50 mg PO QAM Qty: 90 3RF hydrochlorothiazide 25 mg tablet 25 mg PO QAM Qty: 90 3RF fluocinolone and shower cap 0.01 % oil 1 ea TOP .COMPLEX Qty: 3 1RF Rx Instructions: 1 ea topical to areas of the scalp 2 times weekly as directed. betamethasone dipropionate 0.05 % lotion 1 applic TOP DAILY Qty: 180 1RF Rx Instructions: Apply to areas of the scalp daily for up to 3 weeks as needed for flaring. clobetasol 0.05 % cream 1 applic TOP BID PRN (Reason: psoriasis) 14 Days Qty: 180 1RF Rx Instructions: Apply to areas of trunk/extremities twice daily for up to 2 weeks as needed for flaring. ascorbic acid (vitamin C) [Vitamin C] 1,000 mg Tablet 1 g PO UD PRN (Reason: Cold Symptoms) loratadine 10 mg Tablet 10 mg PO QAM cholecalciferol (vitamin D3) [Vitamin D3] 2,000 unit Capsule 2,000 unit PO QAM albuterol sulfate [Ventolin HFA] 90 mcg/actuation Hfa Aerosol Inhaler 1 puff INHALATION UD PRN (Reason: Shortness Of Breath) fluticasone propionate [Flonase Allergy Relief] 50 mcg/actuation [place],Suspension 2 spray INTRANASAL DAILY PRN (Reason: Congestion) levothyroxine [Synthroid] 112 mcg tablet 112 mcg PO QAM fluticasone propion-salmeterol [Advair Diskus] 100-50 mcg/dose Blister With Device 1 inh INHALATION BID omega-3 fatty acids Capsule 1,000 mg PO DAILY Patient Comments: LUNCH hydroxychloroquine [Plaquenil] 200 mg Tablet 100 mg PO HS docusate sodium [Stool Softener] 100 mg Tablet 100 mg PO BID alendronate [Fosamax] 70 mg Tablet 70 mg PO WK Patient Comments: TAKES ON SATURDAYS Artificial Tears (cmc) 1 % Drops 1 drp OPHTHALMIC (EYE) QID Collagen Powder 1 dose PO QAM Patient Comments: 1 SCOOP IN COFFEE EVERY MORNING turmeric 400 mg Capsule 400 mg PO DAILY Patient Comments: DAILY AT LUNCH biotin 10,000 mcg Capsule 10,000 mcg PO QAM ascorbate calcium (vitamin C) 1,000 mg PO Discontinued acetaminophen 160 mg Tablet 325 mg PO Q4H PRN (Reason: Pain) ibuprofen 100 mg Tablet 200 mg PO Q6H PRN (Reason: Pain) Discharge Orders: Discharge Order (Routine); Ordered 12/03/22 Ordered By: Santosh San/Other Patient Handouts: Total Shoulder Replacement Surgery, Shoulder Replace Home Recovery Admission Data Admit Date/Time: 12/02/22 10:03 Attending Provider: Wilian Dey Admit Provider: Wilian Dey Primary Care Provider: Samantha De Oliveira Other Interventions: Discharge Summary Assessment (RN) Last Done: 12/03/22 10:22
== END 2022-12-03 11:39 | disposition home or self-care (01) | DRG 483 ==
LOC: ASU 05:06 → 3N 10:03